=== PATIENT | male | born 2005 | race Two or more races ===

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

== ENCOUNTER 2024-07-02 11:32 | Emergency (ER) | payer MEDICAID ==
[~2024-07-02] VITALS: Ht 167.6 cm; Wt 56.7 kg
[2024-07-02 12:05] VITALS: BP 118/70; O2SAT 98
[2024-07-02] MEDS ORDERED: IBUPROFEN 600 MG TABLET ONE (12:08)
[2024-07-02] MEDS ORDERED: PSEUDOEPHEDRINE HCL 30 MG TABLET ONE (12:08)
[2024-07-02] MEDS ORDERED: BENZONATATE 100 MG CAPSULE PO ONE (12:08)
[2024-07-02 12:14] VITALS: TEMP 98.6
[2024-07-02] MEDS: IBUPROFEN 600 MG TABLET PO ONE (12:14)
[2024-07-02] MEDS: BENZONATATE 100 MG CAPSULE PO PRN (12:14)
[2024-07-02] MEDS: PSEUDOEPHEDRINE HCL 30 MG TABLET PO ONE (12:14)
== END 2024-07-02 12:50 | disposition home or self-care (01) ==
LOC: ER 11:35
DX: B34.9 Viral infection, unspecified (principal)